=== PATIENT | male | born 1985 | race Two or more races ===

== ENCOUNTER 2021-06-24 03:28 | Emergency (ER) | payer MEDICAID ==
[~2021-06-24] VITALS: Ht 180.3 cm; Wt 136.4 kg
[2021-06-24] MEDS ORDERED: LORazepam 2 mg/ml vial IM ONE ×3 (03:45→05:35)
--- NOTE | 2021-06-24 06:30 | NUR ---
[employer] officer #[id number] Hrebert at the bedside.
[2021-06-24] MEDS ORDERED: normal saline 1000ml 1,000 ML IV ONE (07:35)
--- NOTE | 2021-06-24 07:36 | NUR ---
MD at bedside to suture laceration.
[2021-06-24 07:42] LABS: ALANINE AMINOTRANSFERASE 68 U/L (12-78); ALKALINE PHOSPHATASE 96 IU/L (46-116); ANION GAP 14 (8-16); ASPARTATE AMINO TRANSFERASE 42 U/L (10-37); BILIRUBIN,TOTAL 0.7 MG/DL (0.1-1.0); BLOOD UREA NITROGEN 13 MG/DL (7-18); BUN/CREATININE RATIO 9.5 (5.4-32.0); CHLORIDE 108 MMOL/L (99-107); CREATINE KINASE 655 U/L (39-308); CREATININE 1.37 MG/DL (0.60-1.10); GLUCOSE 110 MG/DL (70-104); POTASSIUM 3.6 MMOL/L (3.5-5.1); SODIUM 142 MMOL/L (135-145); TOTAL CARBON DIOXIDE 20.5 MMOL/L (24-32); TOTAL PROTEIN 7.9 G/DL (6.4-8.2); eGFR 59 ML/MIN
--- NOTE | 2021-06-24 08:40 | NUR ---
Pt transported to CT via gurney by mortuary technician and [employer]IN.
[2021-06-24 09:51] LABS: BASOPHILS % (AUTO) 0.1 % (0-1); EOSINOPHILS % (AUTO) 0.1 % (0-6); HEMATOCRIT 41.7 % (42.0-52.0); HEMOGLOBIN 13.8 g/dl (14.0-17.9); LYMPHOCYTES # (AUTO) 0.7 X10'3 (1.1-4.8); LYMPHOCYTES % (AUTO) 6.1 % (21-51); MEAN CORPUSCULAR HEMOGLOBIN 26.9 PG (27.0-31.0); MEAN CORPUSCULAR HGB CONC 33.1 g/dL (33.0-36.5); MEAN PLATELET VOLUME 7.1 FL (7.4-10.4); MONOCYTES # (AUTO) 0.8 X10'3 (0-0.9); MONOCYTES % (AUTO) 7.1 % (2-12); NEUTROPHILS # (AUTO) 10.2 X10'3 (1.8-7.7); NEUTROPHILS % (AUTO) 86.6 % (42-75); PLATELET COUNT 310 X10'3 (140-440); RED BLOOD COUNT 5.15 X10'6 (4.70-6.10); RED CELL DISTRIBUTION WIDTH 13.9 % (11.5-14.5); WHITE BLOOD COUNT 11.8 X10'3 (4.5-11.0)
[2021-06-24 09:58] LABS: URINE AMPHETAMINE SCREEN POSITIVE (Neg); URINE BARBITUATE SCREEN NEGATIVE (Neg); URINE BENZODIAZEPINES SCREEN NEGATIVE (Neg); URINE CANNABINOID SCREEN NEGATIVE (Neg); URINE COCAINE SCREEN NEGATIVE (Neg); URINE METHADONE SCREEN NEGATIVE (Neg); URINE OPIATE SCREEN NEGATIVE (Neg); URINE PHENCYCLIDINE SCREEN NEGATIVE (Neg)
[2021-06-24 10:16] LABS: ETHANOL < 0.010 GM/DL (0.0-0.010)
[2021-06-24] MEDS ORDERED: AMLO2.5T2 PO (10:27)
[2021-06-24] MEDS ORDERED: amLODIPine 5mg tablet PO ONE (10:30)
[2021-06-24] MEDS ORDERED: amLODIPine 2.5mg tablet PO ONE (10:35)
[2021-06-24 10:48] VITALS: BP_DIAS 90
[2021-06-24 10:55] VITALS: BP_SYST 156
--- NOTE | 2021-06-24 11:01 | NUR ---
Pt and officer given and understands d/c instructions. Fit for incarceration. IV d/c'd, catheter was intact.
== END 2021-06-24 11:01 ==
LOC: ER 03:28
DX: S01.411A Laceration without foreign body of right cheek and temporomandibular area, initial encounter (principal); S00.11XA Contusion of right eyelid and periocular area, initial encounter; S40.021A Contusion of right upper arm, initial encounter; S00.83XA Contusion of other part of head, initial encounter; I10 Essential (primary) hypertension; F15.10 Other stimulant abuse, uncomplicated; W22.8XXA Striking against or struck by other objects, initial encounter; Y93.89 Activity, other specified; Y92.89 Other specified places as the place of occurrence of the external cause; Y99.8 Other external cause status
CPT/HCPCS: 12011; 36415; 70450; 70486; 80053; 80305; 80320; 82550; 84443; 85025; 96360; 96372; 99285; J2060; J7030; 99283

== ENCOUNTER 2023-04-24 01:02 | Emergency (ER) | payer MEDICAID ==
[~2023-04-24] VITALS: Ht 180.3 cm; Wt 75.2 kg
[2023-04-24 01:25] VITALS: BP 125/50; PULSE 102; RESP 16; TEMP 98.2; O2SAT 99
[2023-04-24] MEDS: LIDOcaine 1% 30ml preserv. free vial IJ STA (03:41)
[2023-04-24] MEDS ORDERED: TOLN150S TOP (03:55)
[2023-04-24] MEDS ORDERED: DOXY-356 PO (03:55)
[2023-04-24] MEDS: CefTRIAXone 1000mg IM Kit (w/lidocaine diluent) IM STA (03:59)
== END 2023-04-24 04:06 | disposition home or self-care (01) ==
LOC: ER 01:02
DX: L02.31 Cutaneous abscess of buttock (principal); B35.3 Tinea pedis
CPT/HCPCS: 10061; 96372; 99284; J0696; A6449

== ENCOUNTER 2025-01-16 15:35 | Emergency (ER) | payer MEDICAID ==
[~2025-01-16] VITALS: Ht 180.3 cm; Wt 92.8 kg
[~2025-01-16 15:35] MED LIST: TOLN150S TOP
[2025-01-16 15:48] VITALS: BP 143/88; PULSE 94; RESP 16; TEMP 97.8; O2SAT 98
--- NOTE | 2025-01-16 16:26 | Physician Documentation ---
History of Present Illness ~ Chief Complaint: Ankle pain Stated Complaint: ANKLE PAIN Time Seen by MD: 15:58 OK to notify your PCP?: Yes Source: patient Mode of Arrival: POV Exam Limitations: no limitations HPI Reports having right ankle pain since childhood. He thinks it is due to the bone structure. He is requesting have an disability like paperwork filled out ago. He does not have a primary care provider as he is new from [place]. No acute injury. He does have some ankle stiffness and limited range motion. Can not do full flexion. Tetanus witin 5 years: Yes Medication Reconciliation Allergies: Coded Allergies: No Known Allergies (Unverified , 01/16/25) Scheduled Tolnaftate (Tinactin), 1 SPRAYS TOP Q12H Past Medical History Past Medical History: *PSYCH* Past Surgical History: noncontributory Drug Use: none Lives In: Home Review of Systems All Other Systems at this time: Reviewed and Negative Physical Exam Vital Signs: RN Vital Signs have been reviewed: Yes, Temperature: 97.8, Source: Temporal, Heart Rate: 94, Respiratory Rate: 16, BP: 143/88, Pulse Oximetry: 98, Weight: 92.800 Oxygen Flow Rate: 0 Pulse Oximetry Reflects: adequate oxygenation Physical Exam General: Alert, no distress. HEENT: No injection, moist mucous membranes. Neck: Full range of motion. Respiratory: No respiratory distress, equal chest rise and fall. Chest: No accessory muscle use. Cardiovascular: Regular rate and rhythm. Gastrointestinal: Nondistended. Extremities: Decreased range of motion, no deformity in right ankle.. Neurologic: Oriented x4. Psychiatric: Normal mood and affect. Skin: Normal color, warm and dry. Progress Results/Orders Reviewed/noted all lab results: Yes Results/Orders Vital Signs 01/16/25 15:48 Temp 97.8 Pulse 94 Resp 16 B/P (MAP) 143/88 Pulse Ox 98 O2 Flow Rate 0 Medical Decision Making Additional information obtaine: old records Findings Has no acute medical complaint. Is requesting permanent disability paperwork which I notified patient we do not fill out from the ER. Advised patient to get a primary care provider for this. Ankle pain has been going on since childhood. No new complaints. General Diff Dx:Considerations: Include: Other Knee Diff Dx:Considerations: Include: Other Ankle Diff Dx:Considerations: Include: Arthritis, Neurovascular injury, Sprain Foot Diff Dx:Considerations: Include: Other Toe Diff Dx:Considerations: Include: Other Departure Disposition: 01 HOME / SELF CARE / HOMELESS Impression: Primary Impression: Ankle stiff Condition: Stable Discharge Instructions: Ankle Pain Referrals: NO PRIMARY CARE PROVIDER (PCP) Education Educated: Patient Educated regarding: diagnosis, treatment, prognosis, need for follow up Additional Comment Medical Screen Exam This patient recieved a medical screening examination. After reviewing the individual's medical complaints with presenting symptoms and performing an appropriate physical examination, it was determined that no immediate life- threatening emergency medical condition is present. This individual is also not a women having contractions. Signature Scribe Signature: . Attestation: Scribed for Zoey Juarez [employer] by Zoey Hi NP . 01/16/25 16:26 Parts of this note were created using [employer] voice recognition software program. While efforts were made to correct any mistakes made by this voice recognition software program, nonsensical phrases may remain in this note. In addition, there may be errors and syntax, grammar, content and spelling. ZOEY JUAREZ STONEWORK TRACER Jan 16, 2025 16:26
== END 2025-01-16 16:36 | disposition home or self-care (01) ==
LOC: ER 15:36
DX: M25.671 Stiffness of right ankle, not elsewhere classified (principal)
CPT/HCPCS: 99282